=== PATIENT | male | born 1940 | race Caucasian/White ===

== ENCOUNTER 2018-03-20 19:14 | Emergency (ER) | payer OTHER, BC ==
[~2018-03-20] VITALS: Ht 182.9 cm; Wt 81.6 kg
[2018-03-20] MEDS ORDERED: SINEMET 25-2501 EACH (19:57)
[2018-03-20] MEDS ORDERED: CUMADIN (19:57)
== END 2018-03-20 22:32 | disposition home or self-care (01) ==
LOC: ER 19:14
DX: S00.83XA Contusion of other part of head, initial encounter (principal); W18.39XA Other fall on same level, initial encounter; Y93.89 Activity, other specified; Y92.89 Other specified places as the place of occurrence of the external cause; Y99.8 Other external cause status